=== PATIENT | male | born 1985 | race African-American/Black ===

== ENCOUNTER → 2021-04-29 | Day surgery (SDC) | payer OTHER ==
[~2021-04-29] VITALS: Ht 180.3 cm; Wt 86.2 kg
[~2021-04-29] MED LIST: LIPITOR 10MG TA10 MG PO; LIPITOR40 MG PO; NORCO 5-325 TA1 EACH PO; OMEPRAZOLE40 MG PO; ONDANSETRON ODT8 MG PO
[2021-04-29 07:44] LABS: HCT 45.2 % (42.0-52.0); HGB 15.1 g/dl (13.2-18.0); MCH 27.6 pg (25.0-31.0); MCHC 33.4 g/dL (32.0-36.0); MCV 82.5 fL (78.0-100.0); RBC 5.48 M/uL (4.70-6.00); WBC 5.8 K/uL (4.0-10.5)
[2021-04-29 08:00] LABS: ALBUMIN 3.8 g/dL (3.4-5.0); BILIRUBIN - TOTAL 0.7 mg/dL (0.2-1.0); BUN/CREAT RATIO (CALC) 19.1 RATIO; CREATININE 0.89 mg/dL (0.67-1.17); POTASSIUM 3.7 mmol/L (3.5-5.1); TOTAL PROTEIN 7.8 g/dL (6.4-8.2)
== END | disposition home or self-care (01) ==
LOC: FAS 06:44
PROVIDERS: Surgery
DX: K80.10 Calculus of gallbladder with chronic cholecystitis without obstruction (principal); K42.9 Umbilical hernia without obstruction or gangrene; E78.00 Pure hypercholesterolemia, unspecified; Z79.899 Other long term (current) drug therapy
CPT/HCPCS: 36415; 74300; 80053; C1758; J1170; J1885; J2250; J2405; J2704; J2710; J3010; J7120; Q9967

== ENCOUNTER 2022-03-15 21:55 | Emergency (ER) | payer OTHER ==
[2022-03-15 22:46] LABS: BASOPHIL 0 % (0-2); EOSINOPHIL 0.5 % (0-5); HCT 40.6 % (42.0-52.0); HGB 13.5 g/dl (13.2-18.0); LYMPHOCYTE 39.5 % (15-48); MCH 27.7 pg (25.0-31.0); MCHC 33.3 g/dL (32.0-36.0); MCV 83.2 fL (78.0-100.0); MONOCYTE 2.7 % (0-12); NRBC 0; PLT 277 K/uL (150-400); RBC 4.88 M/uL (4.70-6.00); RDW 13.2 % (11.5-14.0); WBC 7.8 K/uL (4.0-10.5)
[2022-03-15 23:06] LABS: BUN/CREAT RATIO (CALC) 13.6 RATIO; CREATININE 1.03 mg/dL (0.67-1.17); POTASSIUM 3.1 mmol/L (3.5-5.1)
== END 2022-03-16 02:47 | disposition home or self-care (01) ==
LOC: FER 21:55
PROVIDERS: Internal Medicine
DX: T78.1XXA Other adverse food reactions, not elsewhere classified, initial encounter (principal); T78.3XXA Angioneurotic edema, initial encounter; E87.6 Hypokalemia; Z88.8 Allergy status to other drugs, medicaments and biological substances
CPT/HCPCS: 36415; 80048; 84484; 85025; 93005; 94640; 94664; 96372; J0171; J2930; J7030